=== PATIENT | female | born 1965 | race Caucasian/White ===

== ENCOUNTER → 2019-02-17 | Outpatient (CLI) | payer OTHER ==
--- NOTE | 2019-02-17 13:20 | RAD ---
EXAM: Cervical spine, 2 views. HISTORY: Pain. COMPARISON: None. FINDINGS: 2 views of cervical spine are obtained. There is instrumented anterior spinal fusion and interbody fusion at C6-C7. There is degenerative endplate remodeling with anterior predominant spurring at the mid and lower cervical levels. There is multilevel facet arthropathy. IMPRESSION: 1. Multilevel degenerative change. 2. Instrumented fusion at C6-C7. Electronically signed by: Korin Gonzalez MD (02/17/2019 1:17 PM) [email or web address]
--- NOTE | 2019-02-17 13:33 | RAD ---
EXAM: Lumbar spine, 2 views. HISTORY: Pain. COMPARISON: None. FINDINGS: 2 views of the lumbar spine are obtained. There is a suspected elongated left L1 transverse process with 5 nonrib-bearing lumbar segments. Based on this numbering system, there is instrumented posterior spinal fusion with laminectomy decompression at L3-L5. There is a disc space fusion device at L4-L5. There is degenerative endplate remodeling at all levels. There is minimal retrolisthesis of L4-5 and L5 on S1. There is multilevel facet arthropathy, primarily the lumbosacral junction. There is a generator within the left flank with leads extending cephalad to terminate at the mid thoracic level. There are prostatectomy clips and clips within the left hemipelvis. IMPRESSION: 1. Multilevel degenerative change, primarily the lumbosacral junction. 2. Instrumented fusion at L3-L5. There is no evidence of instrumentation loosening. Electronically signed by: Korin Gonzalez MD (02/17/2019 1:30 PM) [id number]
== END | disposition home or self-care (01) ==
LOC: RAD 11:45
PROVIDERS: ATTEND Surgery
DX: M47.812 Spondylosis without myelopathy or radiculopathy, cervical region (principal); M47.817 Spondylosis without myelopathy or radiculopathy, lumbosacral region; M12.88 Other specific arthropathies, not elsewhere classified, other specified site; M43.22 Fusion of spine, cervical region
CPT/HCPCS: 72040; 72100